=== PATIENT | female | born 1950 | race Caucasian/White ===

== ENCOUNTER → 2020-03-13 10:19 | Outpatient (CLI) | payer OTHER, SELFPAY ==
[2020-03-13 11:05] LABS: Add Manual Diff / Slide Review NO; Basophils Absolute Auto 0 /uL (0-100); Basophils Percent Auto 0.7 % (0-2); Eosinophils Absolute Auto 300 /uL (0-450); Hematocrit 45.5 % (36-46); Hemoglobin 14.7 g/dL (12.0-16.0); Lymphocytes Absolute Auto 1600 /uL (1100-4500); Lymphocytes Percent Auto 23.5 % (25-40); Mean Corpuscular HGB Conc 32.2 % (30-36); Mean Corpuscular Hemoglobin 30.1 PG (26-34); Mean Corpuscular Volume 93.2 fL (80-100); Monocytes Absolute Auto 600 /uL (0-900); Monocytes Percent Auto 9.2 % (3-14); Neutrophils Absolute Auto 4100 /uL (1500-7000); Neutrophils Percent Auto 61.6 % (50-75); Platelet Count 208 X10^3/uL (150-400); Red Blood Cell Count 4.89 X10^6/uL (4.0-5.2); Red Cell Distribution Width 13.9 % (11.6-14.8); White Blood Cell Count 6.7 X10^3/uL (4.5-11.0)
[2020-03-13 11:23] LABS: Alanine Aminotransferase 20 IU/L (<35); Albumin 4.5 g/dL (3.5-5.0); Albumin Globulin Ratio 1.4 (1.0-2.8); Alkaline Phosphatase 50 U/L (38-126); Aspartate Aminotransferase 26 IU/L (14-36); BUN Creatinine Ratio 18.2 (6-22); Bilirubin Total 0.8 mg/dL (0.2-1.3); Blood Urea Nitrogen 20 mg/dL (7-17); Calcium 9.6 mg/dL (8.4-10.2); Carbon Dioxide 27 mmol/L (22-32); Chloride 106 mmol/L (98-107); Cholesterol 248 mg/dL (140-199); Estimated Glomerular Filt Rate 49.4 mL/min (>60); Globulin 3.2 g/dL (1.7-4.1); Glucose 100 mg/dL (80-110); HDL Cholesterol 48 mg/dL (40-60); HEMOLYSIS < 15 (0-50); LDL Cholesterol Calculated 175 mg/dL (<100); Potassium 4.3 mmol/L (3.4-5.1); Sodium 137 mmol/L (137-145); Total Protein 7.7 g/dL (6.3-8.2); Triglycerides 127 mg/dL (35-150)
[2020-03-13 11:39] LABS: Free T3, Triiodothyronine Free 3.32 pg/mL (2.77-5.27); Free T4, Direct Thyroxine 2.09 ng/dL (0.78-2.19)
[2020-03-13 11:52] LABS: Thyroid Stimulating Hormone 0.903 uIU/mL (0.47-4.68)
== END ==
PROVIDERS: PCP Family Medicine; Referring Provider Family Medicine; Visit Provider Family Medicine
DX: E03.9 Hypothyroidism, unspecified (principal); E78.5 Hyperlipidemia, unspecified; I10 Essential (primary) hypertension; N28.9 Disorder of kidney and ureter, unspecified
CPT/HCPCS: 36415; 80053; 80061; 84439; 84443; 84481; 85025

== ENCOUNTER → 2020-08-30 09:57 | Outpatient (CLI) | payer OTHER, SELFPAY | PROVIDERS: PCP Family Medicine; Visit Provider Physician Assistant | DX: R39.198 Other difficulties with micturition (principal) | CPT/HCPCS: 87086 ==

== ENCOUNTER → 2021-08-06 07:01 | Outpatient (CLI) | payer OTHER, SELFPAY ==
[2021-08-06 07:34] LABS: Add Manual Diff / Slide Review NO; Basophils Absolute Auto 100 /uL (0-100); Basophils Percent Auto 1.8 % (0-2); Eosinophils Absolute Auto 400 /uL (0-450); Eosinophils Percent Auto 6.2 % (2-4); Hematocrit 41.5 % (36-46); Hemoglobin 13.6 g/dL (12.0-16.0); Lymphocytes Absolute Auto 1300 /uL (1100-4500); Lymphocytes Percent Auto 21.1 % (25-40); Mean Corpuscular HGB Conc 32.7 % (30-36); Mean Corpuscular Hemoglobin 30.2 PG (26-34); Mean Corpuscular Volume 92.3 fL (80-100); Monocytes Absolute Auto 500 /uL (0-900); Monocytes Percent Auto 8.5 % (3-14); Neutrophils Absolute Auto 3700 /uL (1500-7000); Neutrophils Percent Auto 62.4 % (50-75); Platelet Count 195 X10^3/uL (150-400); Red Cell Distribution Width 13.6 % (11.6-14.8); White Blood Cell Count 5.9 X10^3/uL (4.5-11.0)
[2021-08-06 08:05] LABS: Alanine Aminotransferase 29 IU/L (<35); Albumin 4.1 g/dL (3.5-5.0); Albumin Globulin Ratio 1.6 (1.0-2.8); Alkaline Phosphatase 63 U/L (38-126); Aspartate Aminotransferase 29 IU/L (14-36); BUN Creatinine Ratio 23.1 (6-22); Bilirubin Total 0.9 mg/dL (0.2-1.3); Blood Urea Nitrogen 24 mg/dL (7-17); Calcium 8.8 mg/dL (8.4-10.2); Carbon Dioxide 29 mmol/L (22-32); Chloride 105 mmol/L (98-107); Cholesterol 169 mg/dL (140-199); Estimated Glomerular Filt Rate 58 mL/min (>60); Globulin 2.5 g/dL (1.7-4.1); Glucose 95 mg/dL (80-110); HDL Cholesterol 63 mg/dL (40-60); HEMOLYSIS < 15 (0-50); LDL Cholesterol Calculated 87 mg/dL (<100); Sodium 140 mmol/L (137-145); Total Protein 6.6 g/dL (6.3-8.2); Triglycerides 93 mg/dL (35-150)
[2021-08-06 08:42] LABS: Thyroid Stimulating Hormone 3.62 uIU/mL (0.47-4.68)
[2021-08-07 21:01] LABS: Free T3, Triiodothyronine Free 2.82 pg/mL (2.77-5.27); Free T4, Direct Thyroxine 1.34 ng/dL (0.78-2.19)
== END ==
PROVIDERS: PCP Family Medicine; Referring Provider Family Medicine; Visit Provider Family Medicine
DX: E03.9 Hypothyroidism, unspecified (principal); I10 Essential (primary) hypertension; E78.5 Hyperlipidemia, unspecified
CPT/HCPCS: 36415; 80053; 80061; 84439; 84443; 84481; 85025

== ENCOUNTER → 2022-04-03 09:00 | Outpatient (CLI) | payer OTHER, SELFPAY ==
[2022-04-03 10:01] LABS: COVID-19 CEPHEID 4-PLEX PCR Negative (Negative); Influenza A - CEPHEID Flu A NEGATIVE (NEGATIVE); Influenza B - CEPHEID Flu B NEGATIVE (NEGATIVE); Respiratory Syncytial Virus Negative (Negative)
== END ==
PROVIDERS: Visit Provider Registered Nurse
DX: R05.1 Acute cough (principal); Z20.822 Contact with and (suspected) exposure to COVID-19
CPT/HCPCS: 0241U

== ENCOUNTER → 2022-09-08 08:00 | Outpatient (CLI) | payer OTHER, SELFPAY ==
[2022-09-08 08:36] LABS: Add Manual Diff / Slide Review NO; Basophils Absolute Auto 100 /uL (0-100); Basophils Percent Auto 1.4 % (0-2); Eosinophils Absolute Auto 400 /uL (0-450); Eosinophils Percent Auto 7.3 % (2-4); Hemoglobin 13.8 g/dL (12.0-16.0); Lymphocytes Absolute Auto 1500 /uL (1100-4500); Lymphocytes Percent Auto 26.4 % (25-40); Mean Corpuscular HGB Conc 33.7 % (30-36); Mean Corpuscular Hemoglobin 30.6 PG (26-34); Mean Corpuscular Volume 90.8 fL (80-100); Monocytes Absolute Auto 800 /uL (0-900); Neutrophils Absolute Auto 2900 /uL (1500-7000); Neutrophils Percent Auto 50.9 % (50-75); Platelet Count 181 X10^3/uL (150-400); Red Blood Cell Count 4.51 X10^6/uL (4.0-5.2); Red Cell Distribution Width 14.3 % (11.6-14.8); White Blood Cell Count 5.7 X10^3/uL (4.5-11.0)
[2022-09-08 08:48] LABS: Alanine Aminotransferase 26 IU/L (<35); Albumin Globulin Ratio 1.6 (1.0-2.8); Alkaline Phosphatase 62 U/L (38-126); Aspartate Aminotransferase 23 IU/L (14-36); Bilirubin Total 1.3 mg/dL (0.2-1.3); Blood Urea Nitrogen 19 mg/dL (7-17); Calcium 9.1 mg/dL (8.4-10.2); Carbon Dioxide 29 mmol/L (22-32); Chloride 105 mmol/L (98-107); Cholesterol 173 mg/dL (140-199); Estimated Glomerular Filt Rate > 60 mL/min (>60); Globulin 2.5 g/dL (1.7-4.1); Glucose 90 mg/dL (80-110); HDL Cholesterol 58 mg/dL (40-60); HEMOLYSIS < 15 (0-50); LDL Cholesterol Calculated 97 mg/dL (<100); Sodium 139 mmol/L (137-145); Total Protein 6.5 g/dL (6.3-8.2); Triglycerides 90 mg/dL (35-150)
[2022-09-08 09:13] LABS: TSH w/ Reflex to FT4 1.69 uIU/mL (0.47-4.68)
== END ==
PROVIDERS: PCP Family Medicine; Referring Provider Family Medicine; Visit Provider Family Medicine
DX: E03.9 Hypothyroidism, unspecified (principal); E78.5 Hyperlipidemia, unspecified; I10 Essential (primary) hypertension; N28.9 Disorder of kidney and ureter, unspecified
CPT/HCPCS: 36415; 80053; 80061; 84443; 85025

== ENCOUNTER → 2023-09-13 08:02 | Outpatient (CLI) | payer OTHER, SELFPAY ==
[2023-09-13 09:50] LABS: Add Manual Diff / Slide Review NO; Basophils Absolute Auto 100 /uL (0-100); Basophils Percent Auto 1.3 % (0-2); Eosinophils Absolute Auto 300 /uL (0-450); Hematocrit 40.1 % (36-46); Hemoglobin 13.7 g/dL (12.0-16.0); Lymphocytes Absolute Auto 1600 /uL (1100-4500); Lymphocytes Percent Auto 29.4 % (25-40); Mean Corpuscular HGB Conc 34.1 % (30-36); Mean Corpuscular Hemoglobin 32.3 PG (26-34); Mean Corpuscular Volume 94.6 fL (80-100); Monocytes Absolute Auto 400 /uL (0-900); Monocytes Percent Auto 7.8 % (3-14); Neutrophils Absolute Auto 3100 /uL (1500-7000); Neutrophils Percent Auto 56.5 % (50-75); Platelet Count 208 X10^3/uL (150-400); Red Blood Cell Count 4.24 X10^6/uL (4.0-5.2); Red Cell Distribution Width 14.1 % (11.6-14.8); White Blood Cell Count 5.6 X10^3/uL (4.5-11.0)
[2023-09-13 10:22] LABS: Alanine Aminotransferase 23 IU/L (<35); Albumin Globulin Ratio 1.7 (1.0-2.8); Alkaline Phosphatase 62 U/L (38-126); Aspartate Aminotransferase 26 IU/L (14-36); Blood Urea Nitrogen 23 mg/dL (7-17); Calcium 8.7 mg/dL (8.4-10.2); Carbon Dioxide 27 mmol/L (22-32); Chloride 108 mmol/L (98-107); Cholesterol 186 mg/dL (140-199); Estimated Glomerular Filt Rate > 60 mL/min (>60); Globulin 2.4 g/dL (1.7-4.1); Glucose 82 mg/dL (80-110); HDL Cholesterol 68 mg/dL (40-60); HEMOLYSIS < 15 (0-50); LDL Cholesterol Calculated 104 mg/dL (<100); Potassium 4.3 mmol/L (3.4-5.1); Sodium 138 mmol/L (137-145); Total Protein 6.4 g/dL (6.3-8.2); Triglycerides 71 mg/dL (35-150)
[2023-09-13 10:42] LABS: TSH w/ Reflex to FT4 1.87 uIU/mL (0.47-4.68)
== END ==
PROVIDERS: PCP Family Medicine; Referring Provider Family Medicine; Visit Provider Family Medicine
DX: E03.9 Hypothyroidism, unspecified (principal); I10 Essential (primary) hypertension; E78.5 Hyperlipidemia, unspecified
CPT/HCPCS: 36415; 80053; 80061; 84443; 85025

== ENCOUNTER → 2023-11-15 06:51 | Outpatient (CLI) | payer OTHER, SELFPAY ==
--- NOTE | 2023-11-15 06:52 | DI.ECHO.S_ITS ---
[facility] : : [id number] : [place] : : [id number] : : Phone: [phone] Echocardiogram Report + + :Name: NAYLA VASQUES Study Date: 11/15/2023 Height: 62 in : :[facility] ReadingLocation: Weight: 174 lb : : Gender: Female BSA: 1.8 m2 : :: 1950 Age: 73 yrs BP: 189/104 mmHg: :Reason For Study: DYPSNEA ON EXERTION : :Ordering Physician: SABIHA HAHN : :C Performed By: Demond Bray : :Referring: MAXINE HAHN : + + Interpretation Summary Mild concentric left ventricular hypertrophy with ejection fraction 60-65%. Diastolic parameters suggest a relaxation abnormality of the left ventricle, consistent with probable normal filling pressures. The left atrium is moderately dilated. The right atrium is mildly dilated. Mild mitral annular calcification. The right ventricular systolic pressure is estimated to be at least 29 mmHg based on an estimated right atrial pressure of 3 mm Hg. There is a trivial to small pericardial effusion noted. Procedure: A two-dimensional transthoracic echocardiogram with color flow and Doppler was performed. The study quality was technically good. There is no prior echocardiogram noted for this patient. The patient was in normal sinus rhythm during the exam. Left Ventricle: The left ventricle is normal in size. There is mild concentric left ventricular hypertrophy. There is no ventricular septal defect visualized. The ejection fraction is estimated to be 60-65%. There are no focal wall motion abnormalities. Diastolic parameters suggest a relaxation abnormality of the left ventricle, consistent with probable normal filling pressures. Right Ventricle: The right ventricle is normal in size and function. The right ventricular systolic function is normal. Atria: The left atrium is moderately dilated. The right atrium is mildly dilated. The interatrial septum grossly appears intact with no obvious evidence for an atrial septal defect. Mitral Valve: There is mild mitral annular calcification. The mitral valve leaflets appear mildly thickened, but open well. The mitral valve leaflets appear to open well. There is trace mitral regurgitation. Aortic Valve: The aortic valve is trileaflet. The aortic valve opens well. No aortic regurgitation is present. Tricuspid Valve: The tricuspid valve is normal in structure and function. There is trace tricuspid regurgitation. The right ventricular systolic pressure is estimated to be at least 29 mmHg based on an estimated right atrial pressure of 3 mm Hg. Pulmonic Valve: The pulmonic valve is normal in structure and function. There is trace pulmonic regurgitation. Great Vessels: The aortic root is normal size. The dimensions of the ascending aorta are normal. The pulmonary artery is normal size. The IVC is of normal diameter and collapses greater than 50% with a sniff. This suggests a low right atrial pressure of 3 mm Hg. Pericardium/ Pleura There is a trivial to small pericardial effusion noted. There is no pleural effusion. MMode/2D Measurements & Calculations LVIDd: 4.2 cm LVOT diam: 2.0 cm LVIDs: 2.6 cm Ao root diam: 3.2 cm FS: 36.7 % asc Aorta Diam: 3.6 cm EPSS: 0.40 cm Ao Arch Diam (Prox Trans): 2.5 cm IVSd: 1.0 cm LVPWd: 0.82 cm LV meek. diameter/BSA (cm/m^2): 2.3 LV sys. diameter/BSA (cm/m^2): 1.5 LA A2 area: 21.4 cm2 RA long axis: 5.4 cm LA A4 area: 25.2 cm2 RA area: 16.5 cm2 LA length (vol): 6.3 cm RA vol: 42.9 ml LA vol: 72.6 ml RA : 23.8 ml/m2 LA vol index: 40.3 ml/m2 IVC diam: 1.6 cm RVD1 (basal): 3.2 cm RVD2 (mid): 2.4 cm TAPSE: 2.3 cm Doppler Measurements & Calculations Ao V2 max: 154.8 cm/sec LVOT Max Saul: 100.0 cm/sec Ao V2 mean: 111.0 cm/sec LV V1 max P.0 mmHg Ao max P.6 mmHg LV V1 VTI: 23.1 cm Ao mean P.4 mmHg BRITTANY(I,D): 1.7 cm2 Ao V2 VTI: 41.0 cm BRITTANY(V,D): 2.0 cm2 sev ratio: 0.56 BRITTANY indexed to BSA (cm^2/m^2): 0.96 MV E max saul: 105.3 cm/sec TR max saul: 255.0 cm/sec MV A max saul: 114.3 cm/sec TR max P.0 mmHg MV E/A: 0.92 PA V2 max: 83.3 cm/sec Med Peak E' Saul: 3.8 cm/sec PA V2 mean: 59.8 cm/sec E/E' med: 27.8 PA mean P.6 mmHg Lat Peak E' Saul: 5.9 cm/sec PA pr(Accel): 19.1 mmHg E/E' lat: 17.7 E/e' average: 22.8 MV dec time: 0.20 sec SV(EVER): 70.6 ml Electronically signed by: Lam Brenner on Reading Physician:11/15/2023 09:01 AM
== END ==
PROVIDERS: PCP Family Medicine; Referring Provider Family Medicine; Visit Provider Family Medicine
DX: I34.81 Nonrheumatic mitral (valve) annulus calcification (principal); R06.09 Other forms of dyspnea
CPT/HCPCS: 93306

== ENCOUNTER → 2024-05-12 09:28 | Outpatient (CLI) | payer MEDICARE, SELFPAY ==
--- NOTE | 2024-05-12 09:29 | DI.RAD.S_ITS ---
PROCEDURE: XR CHEST 2V INDICATIONS: Re-evaluate pneumonia diagnosis TECHNIQUE: 2 views of the chest were acquired. COMPARISON: None. FINDINGS: Surgical changes and devices: None. Lungs and pleura: Bibasilar atelectasis is seen. No focal infiltrate. No pleural effusions or pneumothorax. Mediastinum: Mediastinal contours are normal. Heart size is normal. Bones and chest wall: No suspicious bony abnormalities. Large hiatal hernia with air-fluid level. Soft tissues appear unremarkable. IMPRESSION: Large hiatal hernia with adjacent bibasilar atelectasis. No focal infiltrate, pleural effusion or pneumothorax. Dictated by: Heraclio Luna M.D. on 05/12/2024 at 9:51 Approved by: Heraclio Luna M.D. on 05/12/2024 at 9:51
== END ==
PROVIDERS: PCP Family Medicine; Referring Provider Physician Assistant; Visit Provider Physician Assistant
DX: K44.9 Diaphragmatic hernia without obstruction or gangrene (principal); J98.11 Atelectasis; R05.9 Cough, unspecified
CPT/HCPCS: 71046

== ENCOUNTER → 2024-09-11 08:02 | Outpatient (CLI) | payer MEDICARE, SELFPAY ==
[2024-09-11 08:28] LABS: Add Manual Diff / Slide Review NO; Hematocrit 41.6 % (36-46); Hemoglobin 13.9 g/dL (12.0-16.0); Lymphocytes Absolute Auto 1400 /uL (1100-4500); Mean Corpuscular HGB Conc 33.4 % (30-36); Mean Corpuscular Hemoglobin 30.4 PG (26-34); Mean Corpuscular Volume 91.1 fL (80-100); Platelet Count 203 X10^3/uL (150-400)
[2024-09-11 09:12] LABS: Alanine Aminotransferase 17 IU/L (<35); Albumin 4.0 g/dL (3.5-5.0); Albumin Globulin Ratio 1.5 (1.0-2.8); Alkaline Phosphatase 65 U/L (38-126); Blood Urea Nitrogen 17 mg/dL (7-17); Calcium 9.3 mg/dL (8.4-10.2); Carbon Dioxide 30 mmol/L (22-32); Chloride 105 mmol/L (98-107); Cholesterol 164 mg/dL (140-199); Estimated Glomerular Filt Rate > 60 mL/min (>60); Globulin 2.6 g/dL (1.7-4.1); Glucose 92 mg/dL (70-99); HDL Cholesterol 49 mg/dL (40-60); HEMOLYSIS < 15 (0-50); Potassium 4.9 mmol/L (3.4-5.1); Sodium 140 mmol/L (137-145); Total Protein 6.6 g/dL (6.3-8.2); Triglycerides 101 mg/dL (35-150)
[2024-09-11 09:42] LABS: TSH w/ Reflex to FT4 0.33 uIU/mL (0.47-4.68)
[2024-09-11 10:13] LABS: Free T4, Direct Thyroxine 1.77 ng/dL (0.78-2.19)
== END ==
PROVIDERS: PCP Family Medicine; Referring Provider Family Medicine; Visit Provider Family Medicine
DX: K21.9 Gastro-esophageal reflux disease without esophagitis (principal); I10 Essential (primary) hypertension; J45.909 Unspecified asthma, uncomplicated; E03.9 Hypothyroidism, unspecified; E78.5 Hyperlipidemia, unspecified
CPT/HCPCS: 36415; 80053; 80061; 84439; 84443; 85025

== ENCOUNTER → 2025-01-28 09:34 | Outpatient (CLI) | payer MEDICARE, SELFPAY ==
--- NOTE | 2025-01-28 09:36 | DI.RAD.S_ITS ---
PROCEDURE: XR CHEST 2V INDICATIONS: Cough TECHNIQUE: 2 views of the chest were acquired. COMPARISON: [facility], CR, XR CHEST 2V, 05/12/2024, 9:28. FINDINGS: Surgical changes and devices: None. Lungs and pleura: Lungs are clear. No pleural effusions or pneumothorax. Mediastinum: Mediastinal contours are normal. Heart size is enlarged. Moderate hiatal hernia. Bones and chest wall: No suspicious bony abnormalities. Soft tissues appear unremarkable. IMPRESSION: No acute cardiopulmonary abnormality is seen. Stable moderate cardiomegaly and large hiatal hernia. Dictated by: Jovan Galeana M.D. on 01/28/2025 at 8:57 Approved by: Jovan Galeana M.D. on 01/28/2025 at 8:58
== END ==
PROVIDERS: PCP Family Medicine; Referring Provider Family Medicine; Visit Provider Nurse Practitioner Family
DX: K44.9 Diaphragmatic hernia without obstruction or gangrene (principal); R05.9 Cough, unspecified; I51.7 Cardiomegaly
CPT/HCPCS: 71046